=== PATIENT | female | born 1945 ===

== ENCOUNTER 2024-10-03 08:15 | Inpatient (IN) | payer OTHER ==
[~2024-10-03] VITALS: Ht 152.4 cm; Wt 65.8 kg
[2024-10-03] MEDS ORDERED: METFORMIN HCL500 MG (08:47)
[2024-10-03] MEDS ORDERED: PREGABALIN100 MG PO (08:48)
[2024-10-03] MEDS ORDERED: ATACAND16 MG (08:48)
[2024-10-03] MEDS ORDERED: TOPROL XL25 M1 PO (08:48)
[2024-10-03] MEDS ORDERED: ALENDRONATE SOD10 MG (08:49)
[2024-10-03] MEDS ORDERED: GLIMEPIRIDE2 MG (08:50)
[2024-10-03 09:23] VITALS: BP 146/70
[2024-10-03 09:47] LABS: BASO % 0.6 % (0.1-1.2); EOS # 0.45 (0.04-0.54); EOS % 4.8 % (0.7-7.0); LYMPH # 2.83 (1.18-3.74); LYMPH % 30.4 % (19.3-53.1); MEAN PLATELET VOLUME 9.70 fl (9.4-12.4); MONO # 0.62 (0.24-0.82); MONO % 6.7 % (4.7-12.5); NEUT # 5.33 (1.56-6.13); NEUT % 57.2 % (34.0-71.1); RED CELL DISTRIBUTION WIDTH 13.2 % (11.6-14.4)
[2024-10-03 10:14] LABS: COVID-19 AG NEGATIVE (NEGATIVE)
[2024-10-03 10:22] LABS: INR 1.0
[2024-10-03 10:27] LABS: ALT/SGPT 17.0 U/L (12-78); AST/SGOT 12.0 U/L (15-37); BILIRUBIN TOTAL 0.43 mg/dL (0.3-1.2); BUN CREA RATIO 22.0 (7.0-25.0); CHOL HDL RATIO 4.1 (0-5.0); CREATININE SERUM 0.72 mg/dL (0.55-1.02); GFR 78.34; GLOBULINA 3.8 G/DL (2.4-3.5); GLUCOSE FASTING 153.0 mg/dL (65-100); HDL 58.0 mg/dl (40-60); LDL 138.0 mg/dl (0-130); OSMOLALITY SERUM 280.0 MOSM/KG (275-295); VLDL 40.0 (0-39)
[2024-10-03 10:42] LABS: RH POSITIVE
[2024-10-03 11:23] LABS: URINE APPEARANCE Clear; URINE BILIRRUBIN Negative (NEGATIVE); URINE BLOOD Trace; URINE COLOR Yellow; URINE GLUCOSE Negative (NEGATIVE); URINE KETONE Trace (NEGATIVE); URINE LEUKOCYTE Small; URINE NITRATE Negative; URINE PROTEIN Trace (NEGATIVE); URINE UROBILINOGEN 0.2 E.U./dl
[2024-10-03 11:27] LABS: URINE BACTERIA 104.3 uL (0.0-1933); URINE EPITHELIAL CELLS 21.0 uL (0.0-38.8); URINE RBC 32.9 uL (0.0-20.8); URINE WBC 11.5 uL (0.0-23.2)
[2024-10-03 11:37] LABS: URINE CAST 1.31 uL (0.0-1.40)
[2024-10-08] MEDS ORDERED: VANCOMYCIN HCL 1,000 MG VIAL IV ONE (15:00)
[2024-10-08] MEDS ORDERED: POVIDONE-IODINE 118 ML BOTT TOP ONE (15:15)
[2024-10-08] MEDS ORDERED: KETOROLAC TROMETHAMINE 60 MG VIAL IM ONE (15:15)
[2024-10-08] MEDS ORDERED: TRANEXAMIC ACID 100MG/1ML (1000MG) AMPUL IV ONE (15:15)
[2024-10-08] MEDS ORDERED: CEFAZOLIN SODIUM 1,000 MG VIAL IV ONE (15:15)
[2024-10-08] MEDS ORDERED: BUPIVACAINE HCL/PF 0.25% 30ML VIAL InF ONE (15:15)
[2024-10-08] MEDS ORDERED: LIDOCAINE HCL 1%/EPINEPHRINE 20ML VIAL IJ ONE (15:15)
[2024-10-08] MEDS ORDERED: MORPHINE SULFATE 4 MG/ML VIAL IV ONE (15:15)
[2024-10-08] MEDS ORDERED: ONDANSETRON HCL 2 MG/ML VIAL IV PRN (15:45)
[2024-10-08] MEDS ORDERED: OxyCODONE HCL 5 MG TABLET (ROXICODONE) PO PRN (15:45)
[2024-10-08] MEDS ORDERED: SODIUM CHLORIDE 0.45 % 1,000 ML IV SCH (15:45)
[2024-10-08] MEDS ORDERED: MORPHINE SULFATE 4 MG/ML CARTRIDGE IV PRN (15:45)
[2024-10-08] MEDS ORDERED: ENALAPRILAT DIHYDRATE 1.25 MG/ML VIAL IV PRN (16:15)
[2024-10-08] MEDS ORDERED: DEXTROSE 50 % IN WATER 0.5 G/ML VIAL IV PRN (16:15)
[2024-10-08] MEDS ORDERED: INSULIN LISPRO 1,000 UNIT/10 ML UNITS SUBCUTANEO PRN (16:15)
[2024-10-08] MEDS ORDERED: GABAPENTIN 300 MG CAPSULE PO SCH (17:00)
[2024-10-08] MEDS ORDERED: CEFAZOLIN SODIUM 1,000 MG VIAL IV SCH (17:00)
[2024-10-08] MEDS ORDERED: ACETAMINOPHEN 500 MG GEL..CAP PO SCH (18:00)
[2024-10-08 20:12] VITALS: BP 131/51; O2SAT 98
[2024-10-09 00:39] VITALS: BP 143/78; O2SAT 98
[2024-10-09 06:59] LABS: BASO % 0.2 % (0.1-1.2); EOS # 0.10 (0.04-0.54); EOS % 1.1 % (0.7-7.0); LYMPH # 1.38 (1.18-3.74); LYMPH % 15.3 % (19.3-53.1); MEAN PLATELET VOLUME 9.80 fl (9.4-12.4); MONO # 0.76 (0.24-0.82); MONO % 8.4 % (4.7-12.5); NEUT # 6.72 (1.56-6.13); NEUT % 74.8 % (34.0-71.1); RED CELL DISTRIBUTION WIDTH 13.4 % (11.6-14.4)
[2024-10-09 08:00] VITALS: BP 153/69; O2SAT 97
[2024-10-09] MEDS ORDERED: DUI500 PO (08:43)
[2024-10-09] MEDS ORDERED: PERCOCET 5-3251 EACH PO (08:43)
[2024-10-09] MEDS ORDERED: ELIQUIS2.5 MG PO (08:43)
[2024-10-09] MEDS ORDERED: SENNOSIDES 1 TAB TABLET PO SCH (09:00)
[2024-10-09] MEDS ORDERED: CANDESARTAN CILEXETIL 16 MG TABLET PO SCH (09:00)
[2024-10-09] MEDS ORDERED: METOPROLOL SUCCINATE 25 MG TAB.SR.24H PO SCH (09:00)
[2024-10-09] MEDS ORDERED: APIXABAN 2.5 MG TABLET PO SCH (09:00)
[2024-10-09 12:22] LABS: COVID-19 AG NEGATIVE (NEGATIVE)
[2024-10-09] MEDS ORDERED: Cyanocobalamin/Mecobalamin 1 TAB.SL SL NR (14:00)
[2024-10-09 16:40] VITALS: BP 159/67
[2024-10-09 16:46] VITALS: BP 156/67; O2SAT 98
[2024-10-09] MEDS ORDERED: SOD FERRIC GLUC COMPLX/SUCROSE 62.5 MG/5 ML AMPUL IV SCH (17:00)
[2024-10-10 02:17] VITALS: BP 148/57; O2SAT 96
[2024-10-10 06:09] LABS: BASO % 0.2 % (0.1-1.2); EOS # 0.12 (0.04-0.54); EOS % 1.4 % (0.7-7.0); LYMPH # 1.73 (1.18-3.74); LYMPH % 19.7 % (19.3-53.1); MEAN PLATELET VOLUME 9.90 fl (9.4-12.4); MONO # 0.81 (0.24-0.82); MONO % 9.2 % (4.7-12.5); NEUT # 6.07 (1.56-6.13); NEUT % 69.0 % (34.0-71.1); RED CELL DISTRIBUTION WIDTH 13.2 % (11.6-14.4)
[2024-10-10 08:56] VITALS: BP 147/65; O2SAT 98
[2024-10-10] MEDS ORDERED: IRON FUM,PS/FOLIC ACID/VITC/B3 1 CAP CAPSULE PO SCH (09:00)
[2024-10-10] MEDS ORDERED: Cyanocobalamin/Mecobalamin 1 TAB.SL SL SCH (09:00)
[2024-10-10 16:16] VITALS: BP 144/63; O2SAT 97
[2024-10-11 00:30] VITALS: BP 139/63; O2SAT 99
== END 2024-10-11 13:17 | DRG 470 ==
LOC: SURH 10-08 08:15 → O/R 10-08 08:37 → SURH 10-08 15:33 → SURG 10-08 15:57 → SURH 10-08 16:45 → SURG 10-11 13:17
PROVIDERS: ADMIT Orthopaedic Surgery; ATTEND Orthopaedic Surgery
PROC: 0SRC0J9 Replacement of Right Knee Joint with Synthetic Substitute, Cemented, Open Approach (ICD-10-PCS; principal; 2024-10-08 16:45)
DX: M17.11 Unilateral primary osteoarthritis, right knee (principal); D62 Acute posthemorrhagic anemia; M22.11 Recurrent subluxation of patella, right knee; M81.0 Age-related osteoporosis without current pathological fracture; I10 Essential (primary) hypertension; E11.9 Type 2 diabetes mellitus without complications; Z79.4 Long term (current) use of insulin